=== PATIENT | female | born 1965 | race Caucasian/White ===

== ENCOUNTER 2016-10-23 08:18 | Emergency (ER) | payer BC | END 2016-10-23 10:30 | disposition home or self-care (01) | LOC: ER 08:18 | DX: R09.1 Pleurisy (principal); R11.0 Nausea; Z98.51 Tubal ligation status; Z79.899 Other long term (current) drug therapy; Z88.1 Allergy status to other antibiotic agents; Z88.5 Allergy status to narcotic agent | CPT/HCPCS: 36415 ==